=== PATIENT | male | born 1945 | race American Indian/Alaskan Native ===

== ENCOUNTER 2016-07-14 15:32 | Outpatient (CLI) | payer MEDICARE, OTHER ==
--- NOTE | 2016-07-15 12:32 | Magnetic Resonance Report ---
MRI LUMBAR SPINE WITHOUT CONTRAST: 07/14/16 CLINICAL: Lumbar radiculopathy. Previous foot drop. No comparison. TECHNIQUE: Sagittal and axial T1 and T2, and sagittal STIR sequences on a 1.5 Mery magnet. FINDINGS: Normal vertebral body height, alignment and disc spaces. Decreased T2 disc signal at L4-5. Normal marrow signal. The conus medullaris is normal and terminates at T12. L1-2: Intact disc. Bilateral facet hypertrophy. L2-3: Intact disc. Bilateral facet hypertrophy. L3-4: Intact disc. Bilateral facet hypertrophy, left greater than right. L4-5: Mild circumferential disc bulge. Small left paracentral annular tear. No disc protrusion. L5-S1: Intact. IMPRESSION: 1. Mild degenerative disc disease at L4-5 with a small left paracentral annular tear. No disc protrusion. 2. Multilevel facet joint hypertrophy but no significant neural foraminal narrowing.
== END 2016-07-14 15:33 | disposition home or self-care (01) ==
LOC: MRI 15:32
PROVIDERS: ATTEND General Practice
DX: M51.16 Intervertebral disc disorders with radiculopathy, lumbar region (principal)
CPT/HCPCS: 72148

== ENCOUNTER 2017-08-21 09:05 | Outpatient (CLI) | payer MEDICARE, OTHER ==
--- NOTE | 2017-08-21 14:43 | Nuclear Medicine Report ---
BONE SCAN: History: Malignant neoplasm of prostate. Comparison: No previous bone scan. Correlation is made with a CT abdomen and pelvis without contrast performed the same day. After injection of isotope, gamma camera imaging of the bony system was done. There is a normal uptake of isotope throughout the bony structures without areas of significantly increased or decreased uptake. Mild uptake at the L5-S1 facet joints is noted and consistent with degenerative change. Normal uptake in the urinary system is seen. IMPRESSION: No evidence for metastatic disease to the bones.
--- NOTE | 2017-08-21 17:24 | Cat Scan Report ---
FINAL REPORT EXAM: CT ABDOMEN PELVIS WO CON HISTORY: MALIGNANT NEOPLASM OF PROSTATE TECHNIQUE: Spiral CT scanning of the abdomen and pelvis. No oral or IV contrast administered. Multiplanar reformations. PRIORS: None. FINDINGS: Abdomen: Examination limited due to lack of contrast administration. Visualized lung bases Visualized lung bases show mild atelectatic change or scarring in the left lung base. Gallbladder surgically absent. Liver grossly unremarkable. Spleen grossly unremarkable. Pancreas grossly unremarkable. Kidneys grossly unremarkable. Adrenal glands grossly unremarkable. Pelvis: Bowel grossly unremarkable, with diverticular change in the sigmoid colon. Small direct hernia in the right inguinal region containing partial segment of ascending colon. Appendix is not confidently identified. No significant free peritoneal fluid or loculated fluid collection. Diffuse aortoiliac calcification without aneurysmal dilatation. Nonspecific prostatic enlargement. Heterogeneous mineralization pattern in the axial skeleton, including small sclerotic foci in the posterior aspect of L4 vertebral body and left posterior iliac wing, nonspecific. IMPRESSION: 1. Nonspecific prostatomegaly, and heterogeneous mineralization pattern, including small sclerotic foci in lumbar spine and left iliac wing may be metabolic and represent bone islands, although osseous metastatic disease not completely excluded. Clinical correlation and followup suggested. 2. Small direct hernia in right inguinal region containing partial segment of ascending colon. No evidence of mechanical bowel obstruction. 3. Sigmoid colon diverticulosis.
== END 2017-08-21 09:06 | disposition home or self-care (01) ==
LOC: NM 09:05
PROVIDERS: ATTEND Urology
DX: K57.30 Diverticulosis of large intestine without perforation or abscess without bleeding (principal); C61 Malignant neoplasm of prostate; K40.90 Unilateral inguinal hernia, without obstruction or gangrene, not specified as recurrent; I70.0 Atherosclerosis of aorta; I10 Essential (primary) hypertension; E78.00 Pure hypercholesterolemia, unspecified; Z90.49 Acquired absence of other specified parts of digestive tract; Z87.891 Personal history of nicotine dependence
CPT/HCPCS: 74176; 78306; A9503

== ENCOUNTER 2020-01-05 17:55 | Emergency (ER) | payer MEDICARE, OTHER ==
[2020-01-05 18:30] VITALS: BP 130/60
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
== END 2020-01-05 20:19 | disposition home or self-care (01) ==
LOC: ED 17:55
DX: S09.90XA Unspecified injury of head, initial encounter (principal); M25.552 Pain in left hip; J44.9 Chronic obstructive pulmonary disease, unspecified; Z85.89 Personal history of malignant neoplasm of other organs and systems; Z79.899 Other long term (current) drug therapy; V89.2XXA Person injured in unspecified motor-vehicle accident, traffic, initial encounter; Y93.89 Activity, other specified; Y92.89 Other specified places as the place of occurrence of the external cause; Y99.8 Other external cause status
CPT/HCPCS: 70450